=== PATIENT | male | born 1950 | race Caucasian/White ===

== ENCOUNTER → 2016-09-04 16:22 | Outpatient (CLI) | payer MEDICARE, OTHER ==
[2015-07-01 09:10] VITALS: BMI 33.6
[~2016-09-04 16:22] MED LIST: ALBUTEROL2.5 MG/3 M INH; ALEVE220 MG PO; ALTACE10 MG PO; ALTACE5 MG PO; BAYER CHEWABLE81 MG PO; BETAPACE 80 MG80 MG NG; BETAPACE 80 MG80 MG PO; CARDIZEM60 MG PO; COLACE100 MG PO; ELIQUIS5 MG PO; GLUCOPHAGE500 MG PO; HEMOCYTE PLUS C1 CAP PO; HYDROCODONE-APA1 TAB PO; LOPRESSOR25 MG PO; NORVASC5 MG PO; PLAVIX75 MG PO; PROVENTIL HFA6.7 GM INH; VYTORIN 10-20 M1 TAB PO; VYTORIN 10-40 M1 TAB PO; ZPAK PO
[2016-09-04 17:20] LABS: CHOL - HDL RATIO 6.6 ratio (2.3-4.9); LDL-HDL RATIO 4.3 ratio (1.5-3.5)
== END | disposition home or self-care (01) ==
LOC: D.LABREF 16:22
PROVIDERS: Internal Medicine Cardiovascular Disease
DX: E78.5 Hyperlipidemia, unspecified (principal)

== ENCOUNTER → 2016-12-05 09:30 | Outpatient (CLI) | payer MEDICARE, OTHER ==
[2015-07-01 09:10] VITALS: BMI 33.6
== END | disposition home or self-care (01) ==
LOC: D.RAD 08:00
DX: Z98.890 Other specified postprocedural states (principal)

== ENCOUNTER → 2017-02-07 10:40 | Outpatient (CLI) | payer MEDICARE, OTHER ==
[2015-07-01 09:10] VITALS: BMI 33.6
== END | disposition home or self-care (01) ==
LOC: D.CT 10:40
DX: I71.4 Abdominal aortic aneurysm, without rupture (principal)

== ENCOUNTER → 2017-07-15 13:03 | Outpatient (CLI) | payer MEDICARE, OTHER ==
[2015-07-01 09:10] VITALS: BMI 33.6
== END | disposition home or self-care (01) ==
LOC: D.RAD 13:03
DX: C34.90 Malignant neoplasm of unspecified part of unspecified bronchus or lung (principal)

== ENCOUNTER 2017-09-30 11:41 | Outpatient (CLI) | payer MEDICARE, OTHER ==
[~2017-09-30] VITALS: Ht 182.9 cm; Wt 113.6 kg
--- NOTE | ~2017-09-30 | HEMODYNAMI ---
PATIENT:VOLODYMYR ENGLE MEDICAL RECORD: [id number] : 48 LOCATION:[facility] ADMISSION DATE: 09/30/17 Generatedon:09/30/201716:40 Patient name: VOLODYMYR ENGLE Patient #: [id number] SSN: : 1950 Date of study: 09/30/2017 Page: Of Hemodynamic Procedure Report Patient Data Patient Demographics Procedure consent was obtained First Name: VOLODYMYR Gender: Male Last Name: KADIE : 1950 Middle Initial: L Age: 66 year(s) Patient #: [id number] Race: Unknown Additional ID: [id number] Contact details [address]: [address] [place] [address] State: [place] City: [place] Zip code: [address] Admission Admission Data Admission Date: 09/30/2017 Admission Time: 11:41 Procedure Procedure Types Cath Procedure Diagnostic Procedure LHC LHC w/Coronaries Sedation Charges Moderate Sedation up to 45 minutes PCI Procedure Coronary Stent Coronary Stent Initial Procedure Description Procedure Date Procedure Date: 09/30/2017 Procedure Start Time: 15:52 Procedure End Time: 16:36 Procedure Staff Name Function Arnulfo Mosqueda MD Performing Physician Karen Ponce RT Monitor Crista Bloom RT Scrub Garrett Anton RN Nurse Procedure Data Cath Procedure Fluoroscopy Diagnostic fluoroscopy Total fluoroscopy Time: time: 11.4 min 11.4 min Diagnostic fluoroscopy Total fluoroscopy dose: dose: 2112 mGy 2112 mGy Contrast Material Contrast Material Type Amount (ml) Isovue 300 111 Entry Location Entry Primary Successful Side Size Upsize Upsize Entry Closure Succes sful Closure Location (Fr) 1 (Fr) 2 (Fr) Remarks Device Remarks Femoral Right 5 Fr 6 Fr Exoseal artery Short Estimated blood loss: 5 ml Diagnostic catheters Device Type Used For End Catheter Placement MULTIPACK JL 4.0 5Fr Left Coronary catheter Angiography MULTIPACK 3DRC 5Fr Right Coronary catheter Angiography MULTIPACK Pigtail 5 Fr LV Angiography catheter Procedure Complications No complications Procedure Medications Medication Administration Route Dosage Oxygen etCO2 Nasal cannula 2 l/min Heparin Flush Bag added to field 2 bags (1000units/500ml NS) 0.9% NaCl I.V. 100 ml/hr Fentanyl I.V. 50 mcg Versed I.V. 1 mg Fentanyl I.V. 50 mcg Versed I.V. 1 mg Fentanyl I.V. 50 mcg Fentanyl I.V. 50 mcg Heparin Bolus I.V. 20251 units Brilinta P.O. 180 mg Hemodynamics Rest Heart Rate: 62 (bpm) Pressure Samples Time Site Value (mmHg) Purpose Heart Use Rate(bpm) 16:01 LV 141/11,23 Snapshot 60 16:01 AO 143/68(98) Pullback 60 16:01 LV 147/7,27 Pullback 60 Gradients Valve Time Site 1 Site 2 Mean SEP/DFP Peak To Heart Use (mmHg) (sec/min) Peak Rate (mmHg) (bpm) Aortic 16:01 LV AO 14 13 4 60 147/7,27 143/68(98) Calculations Valve P-P Mean Valve Index Valve Source Name Gradient Area Flow (cm2) Aortic 4 14 4 14 Snapshots Pre Cath Intra NCS Post Cath Vital Signs Time Heart Resp SPO2 etCO2 NIBP (mmHg) Rhythm Pain Sedation Rate (ipm) (%) (mmHg) Status Level (bpm) 15:41:40 69 18 99 35.9 146/73(120) NSR 0 (11) 10(A) , No pain 15:45:52 60 16 98 41.1 144/82(113) NSR 0 (11) 10(A) , No pain 15:50:14 68 17 98 37.4 147/77(110) NSR 0 (11) 9(A) , No pain 15:54:35 59 16 98 32.7 141/73(120) NSR 0 (11) 9(A) , No pain 15:58:55 71 16 98 42.6 132/72(113) NSR 0 (11) 9(A) , No pain 16:03:09 60 16 98 38.9 138/81(111) NSR 0 (11) 9(A) , No pain 16:07:26 60 16 99 37.4 139/74(111) NSR 0 (11) 9(A) , No pain 16:11:40 60 17 98 42.4 136/82(113) NSR 0 (11) 9(A) , No pain 16:15:57 60 16 97 53.1 128/76(112) NSR 0 (11) 9(A) , No pain 16:20:10 60 17 97 41.9 136/78(110) NSR 0 (11) 9(A) , No pain 16:24:27 60 16 99 30.6 146/78(115) NSR 0 (11) 9(A) , No pain 16:28:40 60 16 98 35.1 125/75(98) NSR 0 (11) 10(A) , No pain 16:32:52 60 17 98 44.1 139/79(116) NSR 0 (11) 10(A) , No pain 16:39:26 59 16 99 44.1 152/80(118) NSR 0 (11) 10(A) , No pain Medications Time Medication Route Dose Verified Delivered Reason Notes Effectiveness by by 15:46:27 Oxygen etCO2 2 Arnulfo Garrett Per physician Nasal l/min Panda Anton RN cannula 15:46:36 Heparin Flush added 2 Arnulfo Garrett used for Bag to bags Panda Anton RN procedure (1000units/500ml field NS) 15:46:44 0.9% NaCl I.V. 100 Arnulfo Garrett Per physician ml/hr Panda Anton RN 15:46:58 Fentanyl I.V. 50 Arnulfo Garrett for sedation mcg Panda Anton RN 15:47:05 Versed I.V. 1 mg Arnulfo Garrett for sedation Panda Anton RN 15:59:20 Fentanyl I.V. 50 Arnulfo Garrett for sedation mcg Panda Anton RN 15:59:23 Versed I.V. 1 mg Arnulfo Garrett for sedation Panda Anton RN 16:08:47 [place].V. 28808 Arnulfo Garrtet for units Panda Anton RN anticoagulation 16:09:17 Fentanyl I.V. 50 Arnulfo Garrett for sedation mcg Panda Anton RN 16:24:32 Fentanyl I.V. 50 Arnulfo Garrett for sedation mcg Panda Anton RN 16:35:54 Brilinta P.O. 180 Arnulfo Garrett for mg Panda Anton RN antiplatelet therapy Procedure Log Time Note 15:20:09 Crista Bloom RT(R) sent for patient. Start room use. 15:32:14 Time tracking: Regular hours (M-F 7:00 - 5:00) 15:32:18 Plan of Care:Hemodynamics will remain stable., Cardiac rhythm will remain stable., Comfort level will be maintained., Respiratory function will remain adequate., Patient/ family verbilizes understanding of procedure., Procedure tolerated without complication., Recovers from procedure without complications.. 15:32:22 Patient received from Pre/Post Procedure Room to CCL 2 Alert and oriented. Tansferred to table in Supine position. 15:32:23 Warm blankets applied, and jersey hugger turned on for patient comfort. 15:32:23 Correct patient and procedure confirmed by team. 15:32:25 Signed procedure consent form obtained from patient. 15:32:25 ECG and BP/O2 sat monitors applied to patient. 15:40:27 Vital chart was started 15:40:28 Baseline sample Acquired. 15:40:41 Rhythm: sinus rhythm 15:40:43 Full Disclosure recording started 15:40:47 H&P Date Dictated: 09/30/2017 Within 30 days and on chart., H&P Addendum completed by physician on day of procedure. (MUST COMPLETE FOR ALL OUTPATIENTS). 15:40:48 Pre-procedure instructions explained to patient. 15:40:48 Pre-op teaching completed and patient verbalized understanding. 15:40:52 Family in patients room. 15:40:53 Patient NPO since Midnight. 15:40:55 Is the patient allergic to Iodine/contrast media? No. 15:40:56 Was the patient premedicated? No 15:42:57 Patient diabetic? Yes. 15:42:58 If diabetic: On Metformin? Yes 15:43:05 If on Metformin: Last Dose? 09/28/2017 15:43:07 Previous problem with sedation/anesthesia? No ? 15:43:09 Snore? Yes 15:43:10 Sleep apnea? No 15:43:13 Deviated septum? Yes 15:44:38 Opens mouth fully? Yes 15:44:39 Sticks out tongue? Yes 15:44:42 Airway obstruction? No ? 15:44:44 Dentures? No ? 15:44:48 Pre procedure: right dorsailis pedis pulse 2+ Normal; easily identifiable; not easily obliterated 15:44:50 Pre procedure: left dorsailis pedis pulse 2+ Normal; easily identifiable; not easily obliterated 15:44:52 Patient pain scale 0/10 ?. 15:45:00 IV patent on arrival in right antecubital with 0.9% NaCl at [facility]. 15:45:03 Lab results completed and on chart. 15:45:28 Right groin area was prepped with chlora-prep and draped in sterile fashion 15:45:29 Alarms reviewed by R. N. 15:45:29 Sharps counted by scrub and verified by R.N. 15:45:32 Physician arrived 15:45:32 --------ALL STOP TIME OUT------ 15:45:32 Final Timeout: patient, procedure, and site verified with staff and physician. All members of the team are in agreement. 15:45:35 Right groin site verified by team. 15:45:37 Physical assessment completed. ASA score P 2 - A patient with mild systemic disease as per Arnulfo Mosqueda MD. 15:45:40 Sedation plan: IV Moderate Sedation Medication:Versed, Fentanyl 15:45:45 Use device set Femoral Dx 15:45:47 ACIST Syringe (43753) opened to sterile field. 15:45:47 Bag Decanter (2002S) opened to sterile field. 15:45:47 Medline Cath Pack ([id number]) opened to sterile field. 15:45:48 DIAGNOSTIC WIRE .035 260cm J wire (714486) opened to sterile field. 15:45:49 ACIST Hand Control (26933) opened to sterile field. 15:45:49 ACIST Manifold (86755) opened to sterile field. 15:45:50 DIAGNOSTIC Multipack 5Fr catheter set (CH5649) opened to sterile field. 15:45:50 Tegaderm 4 x 4 (1626W) opened to sterile field. 15:46:27 Oxygen 2 l/min etCO2 Nasal cannula was administered by Garrett Anton RN; Per physician; 15:46:36 Heparin Flush Bag (1000units/500ml NS) 2 bags added to field was administered by Garrett Anton RN; used for procedure; 15:46:44 0.9% NaCl 100 ml/hr I.V. was administered by Garrett Anton RN; Per physician; 15:46:58 Fentanyl 50 mcg I.V. was administered by Garrett Anton RN; for sedation; 15:47:05 Versed 1 mg I.V. was administered by Garrett Anton RN; for sedation; 15:51:56 Procedure started. 15:52:18 Local anesthetic to right femoral artery with Lidocaine 2% by Arnulfo Mosqueda MD.INITIAL ACCESS ONLY 15:52:30 A 5 Fr sheath was inserted into the Right Femoral artery 15:55:22 A MULTIPACK JL 4.0 5Fr catheter was advanced over the wire and used for Left Coronary Angiography. 15:56:03 LCA angiography performed. 15:56:17 Injector settings: Ml/sec: 3, Volume: 6, 15:57:52 Catheter removed. 15:57:58 A MULTIPACK 3DRC 5Fr catheter was advanced over the wire and used for Right Coronary Angiography. 15:59:12 RCA angiography performed. 15:59:14 Injector settings: Ml/sec: 3, Volume: 6, 15:59:20 Fentanyl 50 mcg I.V. was administered by Garrett Anton RN; for sedation; 15:59:23 Versed 1 mg I.V. was administered by Garrett Anton RN; for sedation; 15:59:40 Catheter removed. 15:59:45 A MULTIPACK Pigtail 5 Fr catheter was advanced over the wire and used for LV Angiography. 16:01:17 LV hemodynamics recorded. 16:01:18 LV gram done using TURNER 16:01:21 Injector settings: Ml/sec: 5, Volume: 15, 16:01:37 EF : 35 % 16:02:26 Catheter removed. 16:06:46 SHEATH 6Fr Prelude ([id number]) opened to sterile field. 16:06:46 INFLATOR Merit BasixCompak (RK2866) opened to sterile field. 16:06:47 TUBING High Pressure Extension Tubing (Panda) (MO9875H) opened to sterile field. 16:07:28 GUIDE 6FR AR 1.0 catheter (XT3VV34) opened to sterile field. 16:08:34 Proceeding to intervention. 16:08:40 Sheath upsized to a 6 Fr Short. 16:08:46 6 Fr ar 1 guide catheter was inserted over the wire 16:08:47 Heparin Bolus 50528 units I.V. was administered by Garrett Anton RN; for anticoagulation; 16:08:50 bmw wire advanced. 16:08:53 Wire advanced across lesion. 16:09:17 Fentanyl 50 mcg I.V. was administered by Garrett Anton RN; for sedation; 16:15:13 The YOLY OTW 3.5 x 12 stent ([id number]) was advanced then removed because of failure to cross lesion 16:15:57 Inflate balloon Inflation number: 1 A EMERGE OTW 3.0 x 12 balloon ([id number]) was prepped and advanced across the Prox RCA, then inflated to 12 CRISTÓBAL for 0:10 (min:sec). 16:16:43 Balloon removed over the wire. 16:20:26 Place stent Inflation Number: 1 A YOLY OTW 3.5 x 12 stent ([id number]) was prepped and advanced across the Mid RCA. The stent was deployed at 14 CRISTÓBAL for 0:10 (min:sec). 16:23:07 Stent catheter was removed intact over wire. 16:24:32 Fentanyl 50 mcg I.V. was administered by Garrett Anton RN; for sedation; 16:29:32 The EMERGE OTW 3.5 x 15 balloon ([id number]) was advanced and then removed because of failure to cross lesion 16:29:35 Balloon removed over the wire. 16:29:36 Wire removed. 16:29:36 Guide catheter removed. 16:31:03 EXOSEAL 6Fr (EX600) opened to sterile field. 16:34:02 Sheath removed intact; hemostasis achieved with Exoseal to the Right Femoral artery. 16:34:05 Procedure ended.(Physican Out) 16:34:15 Fluoroscopy time 11.40 minutes. 16:34:19 Fluoroscopy dose: 2112 mGy 16:34:19 Flurop Dose total: 2111 16:34:37 Contrast amount:Isovue 300 111ml. 16:34:39 Sharps counted by scrub and verified by R.N. 16:34:41 Insertion/operative site no bleeding no hematoma. 16:34:43 Post-op/insertion site Right Femoral artery dressed using a 4 x 4 and Tegaderm. 16:34:47 Post right femoral artery:stable 16:34:48 Post Procedure Pulses reassessed and unchanged 16:34:50 Post procedure rhythm: unchanged. 16:34:53 Estimated blood loss: 5 ml 16:34:54 Post procedure instruction explained to patient.Patient verbalizes understanding. 16:34:54 Patient needs reinforcement of post procedure teaching. 16:35:52 Procedure type changed to Cath procedure, Diagnostic procedure, LHC, LHC w/Coronaries, Sedation Charges, Moderate Sedation up to 45 minutes, PCI procedure, Coronary Stent, Coronary Stent Initial 16:35:53 Procedure and supply charges have been captured, reviewed, submitted and are correct. 16:35:54 Brilinta 180 mg P.O. was administered by Garrett Anton RN; for antiplatelet therapy; 16:35:57 Procedure Complication : No complications 16:35:59 Vital chart was stopped 16:35:59 See physician's report for complete and final results. 16:36:04 Report given to [facility]. 16:36:10 Patient transfered to [facility] with Stretcher. 16:36:12 Procedure ended. 16:36:12 Full Disclosure recording stopped 16:36:28 ACC-PCI Only Patient was given prescriptions, or instructed by Arnulfo Mosqueda MD to start/continue the following medications upon discharge: Brilinta 16:36:29 End room use (Document Last) Intervention Summary Intervention Notes Time ActionType Lesion and Equipment Action# Pressure Duration Attributes Used 16:15:13 Discard YOLY OTW 3.5 Stent x 12 stent ([id number]) 16:15:57 Inflate Prox RCA EMERGE OTW 1 12 00:10 balloon 3.0 x 12 balloon ([id number]) 16:20:26 Place stent Mid RCA YOLY OTW 3.5 1 14 00:10 x 12 stent ([id number]) 16:29:32 Discard EMERGE OTW Balloon 3.5 x 15 balloon ([id number]) Device Usage Item Name Manufacture Quantity Catalog Number Hospital Part Current M inimal Lot# / Charge Number Stock Stock Serial# Code ACIST Syringe Acist 1 47344 726632 006291 621508 2 0 (50781) Medical [employer] Bag Decanter Microtek 1 572724 32990 885341 5 () Medical Inc. Medline Cath Cardinal 1 [id number] 824159 63517 768115 5 [facility] ([id number]) DIAGNOSTIC [facility] [place] 1 340871 146777 592724 094036 3 0 WIRE .035 260cm J wire (851717) ACIST Hand Acist 1 87890 015055 822297 761094 5 Control Medical (43001) Systems Inc ACIST Acist 1 86570 727328 925434 510566 5 Manifold Medical (34977) Systems Inc DIAGNOSTIC Cardinal 1 KF3954 126507 11346 168948 3 0 Multipack 5Fr Health catheter set (RH2918) Tegaderm 4 x 3M 1 1626W 230617 318027 949466 5 4 (1626W) MULTIPACK JL Cardinal 1 964498 5 4.0 5Fr Health catheter MULTIPACK Cardinal 1 433648 5 3DRC 5Fr Health catheter MULTIPACK Cardinal 1 815632 5 Pigtail 5 Fr Health catheter SHEATH 6Fr Merit 1 [id number] 126853 998529 286439 5 Prelude Medical ([id number]) INFLATOR Merit 1 ZT9026 576305 854854 355795 1 5 [employer] Medical BasixCompak (DO6342) TUBING High Merit 1 PT9322A 195869 91473 863524 1 0 Pressure Medical Extension Tubing (Mosqueda) (PB9377G) GUIDE 6FR AR Medtronic 1 XQ1BY49 072663 92004 520496 1 1.0 catheter (PO6DW72) YOLY OTW 3.5 Medtronic 1 [id number] 092666 6836399 069747 5 [id number] x 12 stent ([id number]) EMERGE OTW [place] 1 [id number] 152255 134703 642030 5 3.0 x 12 Scientific balloon ([id number]) EMERGE OTW [place] 1 [id number] 430481 650147 5 [id number] 3.5 x 15 Scientific balloon ([id number]) EXOSEAL 6Fr Cardinal 1 EX600 941063 180818 475656 1 0 (EX600) Health Signature Audit Emmalena Stage Time Signature Unsigned Intra-Procedure 09/30/2017 Karen Ponce 4:40:47 PM RT(R) Signatures Monitor : Karen Ponce RT Signature : Date : Time : [place] [address] [place] [address]
--- NOTE | ~2017-09-30 | HEMODYNAMI ---
PATIENT:VOLODYMYR ENGLE MEDICAL RECORD: [id number] : 48 LOCATION:[facility].212 ADMISSION DATE: 09/30/17 Generatedon:10/01/201715:12 Patient name: VOLODYMYR ENGLE Patient #: [id number] SSN: : 1950 Date of study: 10/01/2017 Page: Of Hemodynamic Procedure Report Patient Data Patient Demographics Procedure consent was obtained First Name: VOLODYMYR Gender: Male Last Name: KADIE : 1950 [facility] Initial: L Age: 66 year(s) Patient #: [id number] Race: Unknown Additional ID: [id number] Contact details Address: [address] [place] [address] State: [place] City: [place] Zip code: [address] Admission Admission Data Admission Date: 09/30/2017 Admission Time: 11:41 Room #: 2121 Procedure Procedure Types Cath Procedure Diagnostic Procedure Sedation Charges Moderate Sedation up to 15 minutes PCI Procedure Coronary Stent Coronary Stent Initial Procedure Description Procedure Date Procedure Date: 10/01/2017 Procedure Start Time: 14:40 Procedure End Time: 15:08 Procedure Staff Name Function Arnulfo Mosqueda MD Performing Physician Karen Ponce RT Monitor Crista Bloom RT Scrub Garrett Anton RN Nurse Procedure Data Cath Procedure Fluoroscopy Diagnostic fluoroscopy Total fluoroscopy Time: time: 10.1 min 10.1 min Diagnostic fluoroscopy Total fluoroscopy dose: dose: 1374 mGy 1374 mGy Contrast Material Contrast Material Type Amount (ml) Isovue 300 86 Entry Location Entry Primary Successful Side Size Upsize Upsize Entry Closure Succes sful Closure Location (Fr) 1 (Fr) 2 (Fr) Remarks Device Remarks Femoral Left 6 Fr Exoseal artery Short Estimated blood loss: 5 ml Procedure Complications No complications Procedure Medications Medication Administration Route Dosage Fentanyl I.V. 50 mcg Versed I.V. 1 mg Oxygen etCO2 Nasal cannula 2 l/min Heparin Flush Bag added to field 2 bags (1000units/500ml NS) 0.9% NaCl I.V. 100 ml/hr Fentanyl I.V. 50 mcg Versed I.V. 1 mg Fentanyl I.V. 50 mcg Heparin Bolus I.V. 74301 units Fentanyl I.V. 50 mcg Fentanyl I.V. 50 mcg Fentanyl I.V. 50 mcg Versed I.V. 1 mg Hemodynamics Rest Heart Rate: 75 (bpm) Snapshots Pre Cath Intra NCS Post Cath Vital Signs Time Heart Resp SPO2 etCO2 NIBP (mmHg) Rhythm Pain Sedation Rate (ipm) (%) (mmHg) Status Level (bpm) 14:34:48 72 17 96 0 167/91(128) NSR 0 (11) 10(A) , No pain 14:39:10 70 16 95 0 142/103(128) NSR 0 (11) 10(A) , No pain 14:44:34 69 17 98 3.7 158/101(132) NSR 0 (11) 9(A) , No pain 14:49:02 63 17 95 37.4 150/76(137) NSR 0 (11) 9(A) , No pain 14:53:28 66 16 95 35.2 139/79(135) NSR 0 (11) 9(A) , No pain 14:58:39 66 16 96 0 167/87(140) NSR 0 (11) 9(A) , No pain 15:03:12 77 17 97 53.2 154/101(129) NSR 0 (11) 9(A) , No pain 15:07:38 81 16 95 36 164/115(145) NSR 0 (11) 9(A) , No pain 15:11:03 67 17 94 33 144/96(131) NSR 0 (11) 9(A) , No pain Medications Time Medication Route Dose Verified Delivered Reason Notes Effectiveness by by 14:37:45 Fentanyl I.V. 50 Arnulfo Garrett for sedation mcg Panda Anton RN 14:37:52 Versed I.V. 1 mg Arnulfo Garrett for sedation Panda Anton RN 14:38:37 Oxygen etCO2 2 Arnulfo Garrett Per physician Nasal l/min Panda Anton RN cannula 14:38:48 Heparin Flush added 2 Arnulfo Garrett used for Bag to bags Panda Anton insurance sales professional (1000units/500ml field NS) 14:38:58 0.9% NaCl I.V. 100 Arnulfo Garrett Per physician ml/hr Panda Anton RN 14:40:00 Fentanyl I.V. 50 Arnulfo Garrett for sedation mcg Panda Anton RN 14:40:03 Versed I.V. 1 mg Arnulfo Garrett for sedation Panda Anton RN 14:42:04 Fentanyl I.V. 50 Arnulfo Garrett for sedation mcg Panda Anton RN 14:51:04 Hep[place].V. 47728 Arnulfo Garrett for units Panda Anton RN anticoagulation 14:51:26 Fentanyl I.V. 50 Arnulfo Garrett for sedation mcg Panda Anton RN 14:56:10 Fentanyl I.V. 50 Arnulfo Garrett for sedation mcg Panda Anton RN 15:01:37 Fentanyl I.V. 50 Arnulfo Garrett for sedation mcg Panda Anton RN 15:01:45 Versed I.V. 1 mg Arnulfo Garrett for sedation Panda Anton custodial services manager Log Time Note 14:05:30 Crista Bloom RT(R) sent for patient. Start room use. 14:21:20 Diagnostic Cath Status : Elective 14:22:36 Time tracking: Regular hours (M-F 7:00 - 5:00) 14:22:40 Plan of Care:Hemodynamics will remain stable., Cardiac rhythm will remain stable., Comfort level will be maintained., Respiratory function will remain adequate., Patient/ family verbilizes understanding of procedure., Procedure tolerated without complication., Recovers from procedure without complications.. 14:22:45 Patient received from Med II to [facility] 2 Alert and oriented. Tansferred to table in Supine position. 14:22:46 Warm blankets applied, and jersey hugger turned on for patient comfort. 14:22:46 Correct patient and procedure confirmed by team. 14:22:47 Signed procedure consent form obtained from patient. 14:22:48 ECG and BP/O2 sat monitors applied to patient. 14:33:24 Vital chart was started 14:33:25 Baseline sample Acquired. 14:33:28 Rhythm: sinus rhythm 14:33:30 Full Disclosure recording started 14:33:34 H&P Date Dictated: 10/01/2017 Within 30 days and on chart.. 14:33:36 Pre-procedure instructions explained to patient. 14:33:36 Pre-op teaching completed and patient verbalized understanding. 14:33:37 Family in waiting room. 14:33:39 Patient NPO since Midnight. 14:33:42 Is the patient allergic to Iodine/contrast media? No. 14:33:43 Was the patient premedicated? No 14:33:44 Is patient on blood thinner?Yes 14:33:46 ACC The patient was administered the following blood thiners within the last 24 hours: ACCBrilinta 14:33:50 Patient diabetic? Yes. 14:35:07 Previous problem with sedation/anesthesia? No ? 14:35:11 Snore? Yes 14:35:12 Sleep apnea? Yes 14:35:13 Deviated septum? No 14:35:14 Opens mouth fully? Yes 14:35:15 Sticks out tongue? Yes 14:35:18 Airway obstruction? Yes copd 14:35:22 Dentures? No ? 14:35:30 Pre procedure: right dorsailis pedis pulse 1+ Palpable, but thready & weak; easily obliterated 14:35:32 Pre procedure: left dorsailis pedis pulse 1+ Palpable, but thready & weak; easily obliterated 14:35:34 Patient pain scale 0/10 ?. 14:35:40 IV patent on arrival in right forearm with 0.9% NaCl at [facility]. 14:35:43 Lab results completed and on chart. 14:35:48 Left groin area was prepped with chlora-prep and draped in sterile fashion 14:35:48 Alarms reviewed by R. N. 14:35:49 Sharps counted by scrub and verified by R.N. 14:35:51 Physician arrived 14:35:51 --------ALL STOP TIME OUT------ 14:35:51 Final Timeout: patient, procedure, and site verified with staff and physician. All members of the team are in agreement. 14:36:08 Left groin site verified by team. 14:36:10 Physical assessment completed. ASA score P 2 - A patient with mild systemic disease as per Arnulfo Mosqueda MD. 14:36:14 Sedation plan: IV Moderate Sedation Medication:Versed, Fentanyl 14:36:21 Use device set Radial Dx or PCI 14:36:22 ACIST Syringe (65609) opened to sterile field. 14:36:22 Medline Cath Pack ([id number]) opened to sterile field. 14:36:23 Bag Decanter (2002S) opened to sterile field. 14:36:23 DIAGNOSTIC WIRE .035 260cm J wire (485280) opened to sterile field. 14:36:24 ACIST Hand Control (72424) opened to sterile field. 14:36:24 ACIST Manifold (55613) opened to sterile field. 14:36:25 Tegaderm 4 x 4 (1626W) opened to sterile field. 14:37:45 Fentanyl 50 mcg I.V. was administered by Garrett Anton RN; for sedation; 14:37:52 Versed 1 mg I.V. was administered by Garrett Anton RN; for sedation; 14:38:37 Oxygen 2 l/min etCO2 Nasal cannula was administered by Garrett Anton RN; Per physician; 14:38:48 Heparin Flush Bag (1000units/500ml NS) 2 bags added to field was administered by Garrett Anton RN; used for procedure; 14:38:58 0.9% NaCl 100 ml/hr I.V. was administered by Garrett Anton RN; Per physician; 14:40:00 Fentanyl 50 mcg I.V. was administered by Garrett Anton RN; for sedation; 14:40:03 Versed 1 mg I.V. was administered by Garrett Anton RN; for sedation; 14:40:08 Procedure started. 14:40:13 Local anesthetic to left femerol artery with Lidocaine 2% by Arnulfo Mosqueda MD.INITIAL ACCESS ONLY 14:40:23 A 6 Fr Short sheath was inserted into the Left Femoral artery 14:40:29 Zero performed for pressure channel P1 14:41:24 FIELDER XT J 300cm guide wire ([id number]) opened to sterile field. 14:41:24 INFLATOR Merit BasixCompak (XU7795) opened to sterile field. 14:41:28 SHEATH 6Fr Prelude ([id number]) opened to sterile field. 14:41:41 TUBING High Pressure Extension Tubing (Panda) (GV0346L) opened to sterile field. 14:42:04 Fentanyl 50 mcg I.V. was administered by Garrett Anton RN; for sedation; 14:42:26 GUIDE 6FR XBLAD 4.0 catheter (24543733) opened to sterile field. 14:42:34 6 Fr xblad 4 guide catheter was inserted over the wire 14:45:00 Guide Catheter removed. unable to cannulate vessel. 14:45:06 GUIDE 6FR XBLAD 3.5 catheter (92011076) opened to sterile field. 14:45:34 6 Fr xblad 3.5 guide catheter was inserted over the wire 14:49:34 Guide Catheter removed. unable to cannulate vessel. 14:49:54 GUIDE 6FR Q 4.0 catheter (193527868) opened to sterile field. 14:50:14 LCA angiography performed. 14:50:17 Injector settings: Ml/sec: 3, Volume: 6, 14:51:04 Heparin Bolus 24231 units I.V. was administered by Garrett Anton RN; for anticoagulation; 14:51:26 Fentanyl 50 mcg I.V. was administered by Garrett Anton RN; for sedation; 14:51:36 fielder wire advanced. 14:54:37 Wire advanced across lesion. 14:56:10 Fentanyl 50 mcg I.V. was administered by Garrett Anton RN; for sedation; 14:56:38 fielder wire exchanged for BMW wire 14:56:51 BMW 300cm [place] 2 J wire ([id number]) opened to sterile field. 14:58:40 Inflate balloon Inflation number: 1 A EMERGE OTW 2.0 x 15 balloon ([id number]) was prepped and advanced across the Mid LAD, then inflated to 8 CRISTÓBAL for 0:10 (min:sec). 15:01:17 Balloon removed over the wire. 15:01:37 Fentanyl 50 mcg I.V. was administered by Garrett Anton RN; for sedation; 15:01:45 Versed 1 mg I.V. was administered by Garrett Anton RN; for sedation; 15:02:35 Place stent Inflation Number: 2 A YOLY OTW 2.75 x 15 stent ([id number]) was prepped and advanced across the Mid LAD. The stent was deployed at 14 CRISTÓBAL for 0:10 (min:sec). 15:03:02 Inflation number: 3 The stent balloon was then re-inflated across the Mid LAD to 14 CRISTÓBAL for 0:10 (min:sec). 15:04:08 Inflation number: 4 The stent balloon was then re-inflated across the Mid LAD to 14 CRISTÓBAL for 0:10 (min:sec). 15:05:13 Stent catheter was removed intact over wire. 15:05:14 Wire removed. 15:05:14 Guide catheter removed. 15:05:35 EXOSEAL 6Fr (EX600) opened to sterile field. 15:05:49 Sheath removed intact; hemostasis achieved with Exoseal to the Left Femoral artery. 15:05:51 Procedure ended.(Physican Out) 15:06:08 Fluoroscopy time 10.10 minutes. 15:06:14 Fluoroscopy dose: 1374 mGy 15:06:14 Flurop Dose total: 1374 15:06:19 Contrast amount:Isovue 300 86ml. 15:06:21 Sharps counted by scrub and verified by R.N. 15:06:23 Insertion/operative site no bleeding no hematoma. 15:06:27 Post-op/insertion site Left Femoral artery dressed using a Mepilex dressing. 15:06:31 Post left femerol artery:stable 15:06:32 Post Procedure Pulses reassessed and unchanged 15:06:38 Post procedure rhythm: unchanged. 15:07:03 Estimated blood loss: 5 ml 15:07:04 Post procedure instruction explained to patient.Patient verbalizes understanding. 15:07:05 Patient needs reinforcement of post procedure teaching. 15:07:34 Procedure type changed to Cath procedure, Diagnostic procedure, Sedation Charges, Moderate Sedation up to 15 minutes, PCI procedure, Coronary Stent, Coronary Stent Initial 15:07:35 Procedure and supply charges have been captured, reviewed, submitted and are correct. 15:07:40 Procedure Complication : No complications 15:08:09 Vital chart was stopped 15:08:09 See physician's report for complete and final results. 15:08:16 Report given to Pre/Post Procedure Room. 15::49 Patient transfered to Pre/Post Procedure Room with Stretcher. 15::51 Procedure ended. 15:08:51 Full Disclosure recording stopped 15:08:58 ACC-PCI Only Patient was given prescriptions, or instructed by Arnulfo Mosqueda MD to start/continue the following medications upon discharge: Brilinta 15:09:00 End room use (Document Last) Intervention Summary Intervention Notes Time ActionType Lesion and Equipment Action# Pressure Duration Attributes Used 14:58:40 Inflate Mid LAD EMERGE OTW 1 8 00:10 balloon 2.0 x 15 balloon ([id number]) 15:02:35 Place stent Mid LAD YOLY OTW 2.75 2 14 00:10 x 15 stent ([id number]) 15:03:02 Reinflate Mid LAD YOLY OTW 2.75 3 14 00:10 stent x 15 stent balloon ([id number]) 15:04:08 Reinflate Mid LAD YOLY OTW 2.75 4 14 00:10 stent x 15 stent balloon ([id number]) Device Usage Item Name Manufacture Quantity Catalog Number Hospital Part Current [facility] Lot# / Charge Number Stock Stock Serial# Code ACIST Syringe Acist 1 76917 104331 835801 234311 20 (46691) Medical Systems Inc Medline Cath Cardinal 1 [id number] 124198 65097 497829 5 Pack Health ([id number]) Bag Decanter Microtek 1 2001S 352140 61125 024763 5 (2001S) Medical Inc. DIAGNOSTIC [place] 1 265507 600182 349388 261961 30 WIRE .035 260cm J wire (688968) ACIST Hand Acist 1 73959 762124 157391 889898 5 Control Medical (33382) Systems Inc ACIST Acist 1 51155 458561 864694 147662 5 Manifold Medical (32084) Systems Inc Tegaderm 4 x 3M 1 1626W 568158 996172 947815 5 4 (1626W) FIELDER XT J La 1 [id number] 144649 347211 034421 5 300cm guide Vascular wire ([id number]) INFLATOR Merit 1 RR0227 097923 101863 326745 15 Merit Medical BasixCompak (HZ7465) SHEATH 6Fr Merit 1 [id number] 973270 608050 484835 5 Prelude Medical ([id number]) TUBING High Merit 1 HO3919D 063937 52963 041728 10 Pressure Medical Extension Tubing (Mosqueda) (LM6778O) GUIDE 6FR Cardinal 1 [id number] 970622 108917 000280 3 XBLAD 4.0 Health catheter (68394734) GUIDE 6FR Cardinal 1 [id number] 807236 465222 829090 10 XBLAD 3.5 Health catheter (50561049) GUIDE 6FR Q Allison 1 [id number] 683212 470732 841404 1 4.0 catheter Scientific (417388133) BMW 300cm La 1 [id number] 202034 414016 439622 5 [place] 2 J Vascular wire (0247675G) EMERGE OTW Allison 1 [id number] 830376 411010 418404 5 [id number] 2.0 x 15 Scientific balloon ([id number]) YOLY OTW 2.75 Medtronic 1 [id number] 984579 8858672 284320 5 [id number] x 15 stent ([id number]) EXOSEAL 6Fr Cardinal 1 EX600 710179 109374 707379 10 (EX600) Health Signature Audit [place] Stage Time Signature Unsigned Intra-Procedure 10/01/2017 Karen Ponce 3:12:43 PM RT(R) Signatures Monitor : Karen Ponce RT Signature : Date : Time : [place] [id number] [place] [address]
[2017-09-30] MEDS ORDERED: CARDIZEM120 MG PO (12:44)
[2017-09-30 13:15] LABS: BASOPHILS 0.1 % (0-2); EOSINOPHILS 1.7 % (0-7); HEMATOCRIT 41.8 % (42.0-54.0); HEMOGLOBIN 14.4 g/dL (13.5-17.5); IMMATURE GRANULOCYTES 0.4 % (0-5); LYMPHOCYTES 43.3 % (15-50); MCH 34.1 pg (26.0-34.0); MCHC 34.4 g/dL (31.0-37.0); MCV 99.1 fL (80.0-100.0); MEAN PLATELET VOLUME 9.6 fL (7.4-10.4); MONOCYTES 8.9 % (2-11); NEUTROPHILS 45.6 % (40-80); RBC 4.22 10x6/uL (4.20-6.10); RDW 12.8 % (11.5-14.5); WBC 7.9 10x3/uL (4.8-10.8)
[2017-09-30 13:16] LABS: PLATELET COUNT 101 10x3/uL (130-400)
[2017-09-30 13:22] VITALS: BP 108/72; BMI 34.0
[2017-09-30 14:22] LABS: CALC OSMOLALITY 283 mosm/kg (275-300); CALCIUM 8.8 mg/dL (8.5-10.1); CARBON DIOXIDE 25.2 mmol/L (21.0-32.0); CHLORIDE - SERUM 102 mmol/L (98-107); GLUCOSE 135 mg/dL (74-106); POTASSIUM - SERUM 3.7 mmol/L (3.5-5.1); SODIUM 140 mmol/L (136-145); UREA NITROGEN 21 mg/dL (7-18); eGFR NON AFRICAN AMERICAN 79 mL/min (90-120)
[2017-09-30 17:08] VITALS: BP 114/74; Ht 182.9 cm; Wt 113.6 kg
[2017-09-30 20:00] VITALS: BP 130/68
[2017-10-01] VITALS: BP 127/61
[2017-10-01 04:00] VITALS: BP 146/80
[2017-10-01 08:00] VITALS: BP 128/78
[2017-10-01 09:05] LABS: BASOPHILS 0.1 % (0-2); EOSINOPHILS 1.1 % (0-7); HEMATOCRIT 39.5 % (42.0-54.0); HEMOGLOBIN 13.7 g/dL (13.5-17.5); IMMATURE GRANULOCYTES 0.4 % (0-5); LYMPHOCYTES 36.8 % (15-50); MCH 34.7 pg (26.0-34.0); MCHC 34.7 g/dL (31.0-37.0); MEAN PLATELET VOLUME 9.8 fL (7.4-10.4); MONOCYTES 7.4 % (2-11); NEUTROPHILS 54.2 % (40-80); PLATELET COUNT 107 10x3/uL (130-400); RBC 3.95 10x6/uL (4.20-6.10); RDW 12.8 % (11.5-14.5); WBC 8.1 10x3/uL (4.8-10.8)
[2017-10-01 09:13] LABS: CALC OSMOLALITY 283 mosm/kg (275-300); CARBON DIOXIDE 29.5 mmol/L (21.0-32.0); CHLORIDE - SERUM 103 mmol/L (98-107); GLUCOSE 165 mg/dL (74-106); POTASSIUM - SERUM 3.9 mmol/L (3.5-5.1); SODIUM 139 mmol/L (136-145); UREA NITROGEN 18 mg/dL (7-18); eGFR NON AFRICAN AMERICAN 79 mL/min (90-120)
[2017-10-01 11:39] VITALS: BP 136/77
== END 2017-10-01 19:35 | disposition home or self-care (01) ==
LOC: D.CATH 11:41 → D.M2 11:41 → D.CATH 14:00 → D.M2 16:47 → D.CLR 10-01 15:24 → D.CATH 10-01 19:35
PROVIDERS: Internal Medicine Cardiovascular Disease
DX: I25.119 Atherosclerotic heart disease of native coronary artery with unspecified angina pectoris (principal); I73.9 Peripheral vascular disease, unspecified; I71.4 Abdominal aortic aneurysm, without rupture; Z01.812 Encounter for preprocedural laboratory examination
CPT/HCPCS: 93458; C9600 ×2

== ENCOUNTER → 2018-03-18 11:32 | Outpatient (CLI) | payer MEDICARE, OTHER ==
[2017-09-30 17:08] VITALS: BMI 34.0
[~2018-03-18 11:32] MED LIST changes: +CARDIZEM120 MG PO
== END | disposition home or self-care (01) ==
LOC: D.RAD 11:32
DX: C34.10 Malignant neoplasm of upper lobe, unspecified bronchus or lung (principal)

== ENCOUNTER → 2018-05-05 10:33 | Outpatient (CLI) | payer MEDICARE, OTHER ==
[2017-09-30 17:08] VITALS: BMI 34.0
== END | disposition home or self-care (01) ==
LOC: D.CT 10:33
DX: C34.90 Malignant neoplasm of unspecified part of unspecified bronchus or lung (principal); I71.4 Abdominal aortic aneurysm, without rupture

== ENCOUNTER → 2018-10-05 13:54 | Outpatient (CLI) | payer MEDICARE, OTHER ==
[2017-09-30 17:08] VITALS: BMI 34.0
== END | disposition home or self-care (01) ==
LOC: D.HCCARDIO 13:54
PROVIDERS: ATTEND Internal Medicine Cardiovascular Disease
DX: I25.10 Atherosclerotic heart disease of native coronary artery without angina pectoris (principal)

== ENCOUNTER → 2018-12-11 10:54 | Outpatient (CLI) | payer MEDICARE, OTHER ==
[2017-09-30 17:08] VITALS: BMI 34.0
== END | disposition home or self-care (01) ==
LOC: D.CT 10:54
PROVIDERS: ATTEND Internal Medicine Hematology & Oncology
DX: C34.10 Malignant neoplasm of upper lobe, unspecified bronchus or lung (principal)

== ENCOUNTER 2019-04-07 09:11 | Emergency (ER) | payer MEDICARE, OTHER ==
[~2019-04-07] VITALS: Ht 182.9 cm; Wt 113.6 kg
[2019-04-07 09:31] VITALS: Ht 182.9 cm; Wt 113.6 kg
[2019-04-07] MEDS ORDERED: AUGMENTIN 875-11 TAB PO (10:32)
[2019-04-07 11:04] VITALS: BP 120/85
== END 2019-04-07 11:05 | disposition home or self-care (01) ==
LOC: D.ER 09:11
DX: K04.7 Periapical abscess without sinus (principal); E11.9 Type 2 diabetes mellitus without complications; I25.10 Atherosclerotic heart disease of native coronary artery without angina pectoris; I10 Essential (primary) hypertension; E78.5 Hyperlipidemia, unspecified

== ENCOUNTER → 2019-05-11 08:35 | Outpatient (CLI) | payer MEDICARE, OTHER ==
[2019-04-07 09:31] VITALS: BMI 34.0
[~2019-05-11 08:35] MED LIST changes: +AUGMENTIN 875-11 TAB PO
== END | disposition home or self-care (01) ==
LOC: D.CT 08:35
PROVIDERS: ATTEND Internal Medicine Cardiovascular Disease
DX: I71.4 Abdominal aortic aneurysm, without rupture (principal)

== ENCOUNTER → 2019-05-18 08:33 | Outpatient (CLI) | payer MEDICARE, OTHER ==
[2019-04-07 09:31] VITALS: BMI 34.0
== END | disposition home or self-care (01) ==
LOC: D.CT 08:33
PROVIDERS: ATTEND Internal Medicine Cardiovascular Disease
DX: C34.11 Malignant neoplasm of upper lobe, right bronchus or lung (principal)

== ENCOUNTER → 2019-12-22 11:03 | Outpatient (CLI) | payer MEDICARE, OTHER ==
[2019-04-07 09:31] VITALS: BMI 34.0
== END | disposition home or self-care (01) ==
LOC: D.RAD 11:03
PROVIDERS: ATTEND Internal Medicine Hematology & Oncology
DX: C34.10 Malignant neoplasm of upper lobe, unspecified bronchus or lung (principal)

== ENCOUNTER → 2020-01-21 09:25 | Outpatient (CLI) | payer MEDICARE, OTHER ==
[2019-04-07 09:31] VITALS: BMI 34.0
== END | disposition home or self-care (01) ==
LOC: D.HCCECHO 09:25
PROVIDERS: ATTEND Internal Medicine Cardiovascular Disease
DX: I25.10 Atherosclerotic heart disease of native coronary artery without angina pectoris (principal)

== ENCOUNTER → 2020-08-24 09:40 | Outpatient (CLI) | payer MEDICARE, OTHER ==
[2019-04-07 09:31] VITALS: BMI 34.0
== END | disposition home or self-care (01) ==
LOC: D.CT 09:40
PROVIDERS: ATTEND Thoracic Surgery (Cardiothoracic Vascular Surgery)
DX: I71.4 Abdominal aortic aneurysm, without rupture (principal)